=== PATIENT | female | born 1960 | race Caucasian/White ===

== ENCOUNTER 2020-11-03 22:50 | Emergency (ER) | payer BC, SELFPAY ==
[2020-11-03 22:51] VITALS: BP 145/62; PULSE 68; RESP 18; TEMP 36.4; O2SAT 94; BMI 40.6
--- NOTE | 2020-11-03 23:59 | EX.ED.DYSGE1 ---
HPI History of Present Illness Chief Complaint: Rash Narrative Narrative: Patient presenting for evaluation secondary to rash. Patient is here from [place]. Patient states that she was visiting a grave, and she was exposed to some different plants on her arms and legs. This was 2 days ago, the patient had a development of rash on her right leg. She reports that in the last couple of hours she has had an explosion of this rash on her arms and legs. She states that it itches guerin and is mildly painful. She denies any mucosal involvement. She denies any history of allergies. She has been using calamine lotion has not necessarily alleviated her symptoms. She denies any history of immunosuppression. Review of systems otherwise negative. PFSH PFS Home Medications methylprednisolone [Medrol (Chidi)] 4 mg PO DAILY #21 tab 11/04/20 [Rx Last Taken Unknown] Allergy/AdvReac Type Severity Reaction Status Date / Time cefazolin [From Ancef] Allergy Anaphylaxis Verified 11/03/20 22:55 acetaminophen [From Lortab] AdvReac Other Verified 11/03/20 22:55 cyclobenzaprine AdvReac Other Verified 11/03/20 22:55 [From Flexeril] hydrocodone [From Lortab] AdvReac Other Verified 11/03/20 22:55 Social History Smoking Status: Unknown if ever smoked ROS ROS ED Constitutional Constitutional ED: Denies chills or fever(s) ENT ENT ED: Denies rhinorrhea Cardiovascular Cardiovascular: Denies chest pain Respiratory/Chest Respiratory/Chest: Denies cough or dyspnea Gastrointestinal Gastrointestinal: Denies abdominal pain, diarrhea, nausea or vomiting Genitourinary Genitourinary ED: Denies dysuria or hematuria Musculoskeletal Musculoskeletal: Denies back pain Integumentary Reports rash Neurologic Neurologic: Denies paresthesias or weakness Psychiatric Psychiatric: Denies depression Endocrine Endocrinology: Denies fatigue Allergic/Immunologic Allergic/Immunologic ED: Denies urticaria EXAM Physical Exam Const Vital Signs: 11/03/20 22:51 Temperature 97.5 F L Temperature Source Temporal Pulse Rate 68 Respiratory Rate 18 Blood Pressure 145/62 H Blood Pressure Mean 89 Pulse Ox 94 Oxygen Delivery Method Room Air Positive well nourished and well developed General Appearance ED: well developed and NAD HEENT Reports moist mucous membranes HEENT Narrative: No evidence of lip or tongue swelling. No evidence of lesions in the mouth or throat. Negative for trauma or tenderness Eyes EOMs intact bilaterally Neck no lymphadenopathy, supple and no JVD Chest Wall inspection of chest normal Resp normal respiratory effort and clear to auscultation bilaterally Cardio regular rate, regular rhythm, no murmurs and peripheral pulses 2+ throughout GI normal to inspection, nondistended, normoactive bowel sounds, non-tender and no masses Palpation: soft Back/Spine normal to inspection Extremity normal to inspection General Extremety ED: Negative for tenderness Neuro oriented x3 and no sensory deficits noted Sensorium / Orientation: alert Motor Exam: strength 5/5 throughout Psych mental status grossly normal Skin no rashes or lesions noted Skin Narrative: Patient has some psoriasis plaques on her elbows consistent with her history. Patient's rash is very interesting. She has petechial portions on the right anterior perry. She has some blisters over the dorsum of her hands bilaterally and then she has some urticarial rash that is linear on her arms bilaterally. There is no subcutaneous emphysema. There is no Nikolsky sign. MDM MDM MDM Narrative Medical decision making narrative: Patient presented secondary to rash. This seems most consistent with a contact dermatitis. No evidence of oral involvement no evidence of anaphylaxis. I believe the patient can safely be treated with steroids. Patient be placed on a Medrol pack. She was discharged in stable condition. Discharge Plan Triage Chief Complaint: Rash ED Provider: Ministerio Hearn Dx/Rx/DC Orders Clinical Impression: Contact dermatitis Instructions: ED Contact Dermatitis Prescriptions: New methylprednisolone [Medrol (Chidi)] 4 mg tablets,dose pack 4 mg PO DAILY Qty: 21 RF: 0 Primary Care Provider: [facility] ,Out of Referrals: [facility] ,Out of [Primary Care Provider] - Disposition Disposition: Home, Self Care
== END 2020-11-04 00:49 | disposition home or self-care (01) ==
PROVIDERS: Emergency Provider Emergency Medicine
DX: L25.9 Unspecified contact dermatitis, unspecified cause (principal)
CPT/HCPCS: 99282